=== PATIENT | female | born 1970 | race Caucasian/White ===

== ENCOUNTER → 2017-03-20 | Outpatient (CLI) | payer BC ==
--- NOTE | 2017-03-23 08:29 | Diagnostic Imaging Report ---
Bilateral screening mammogram. The current study was also evaluated with a Computer Aided Detection (CAD) system. INDICATION: Screening. No current complaints stated on the questionnaire. COMPARISON: 09/14/2015. FINDINGS: The breasts are composed of heterogeneously dense parenchyma which would decrease mammographic sensitivity. There are developing calcifications seen in the upper and lower aspects of the left breast and minimal calcification seen in the upper right breast laterally. IMPRESSION: Developing microcalcifications seen in the upper and lower aspects of the left breast and in the upper outer right breast. Compression magnification views evaluation and bilateral ultrasound is recommended for further assessment. ACR BI-RADS Category 0: Incomplete. (Needs additional imaging evaluation). Result letter will be mailed to the patient. Note: At least 10% of breast cancer is not imaged by mammography. Dictated by: Dictated on workstation # [id number]
== END ==
LOC: RAD 11:11
PROVIDERS: ATTEND Obstetrics & Gynecology
DX: Z12.31 Encounter for screening mammogram for malignant neoplasm of breast (principal)
CPT/HCPCS: 77067

== ENCOUNTER → 2017-04-12 | Outpatient (CLI) | payer BC ==
--- NOTE | 2017-04-12 14:16 | Diagnostic Imaging Report ---
EXAMINATION: Bilateral breast ultrasound. INDICATION: Bilateral breast calcifications seen on mammography. FINDINGS: The four-quadrants and retroareolar region of each breast were scanned with no underlying abnormality seen. IMPRESSION: Negative study. The calcifications remain indeterminate although the overall features are in favor of a benign etiology. A 6 month followup mammogram is recommended to reevaluate. ACR BI-RADS Category 3: Probably benign findings. Dictated by: Dictated on workstation # [id number]
--- NOTE | 2017-04-12 17:29 | Diagnostic Imaging Report ---
EXAMINATION: Bilateral diagnostic mammogram with tomography. The current study was also evaluated with a Computer Aided Detection (CAD) system. INDICATION: Bilateral breast calcifications. COMPARISON: 03/20/2017. FINDINGS: The breasts are composed of heterogeneously dense parenchyma which may decrease mammographic sensitivity. Bilateral calcifications were evaluated with magnification views. These demonstrate punctate and minimal heterogeneity with relatively dispersed loose clustering seen, particularly in the left breast. No associated mass is seen. IMPRESSION: The calcifications are relatively dispersed on the left side and have very minimal heterogeneity with no associated mass bilaterally. An ultrasound evaluation is pending. ACR BI-RADS Category 0: Incomplete. (Needs additional imaging evaluation). Result letter will be mailed to the patient. Note: At least 10% of breast cancer is not imaged by mammography. Dictated by: Dictated on workstation # [id number]
== END ==
LOC: RAD 12:38
PROVIDERS: ATTEND Obstetrics & Gynecology
DX: R92.8 Other abnormal and inconclusive findings on diagnostic imaging of breast (principal)
CPT/HCPCS: 77066

== ENCOUNTER → 2019-07-01 | Outpatient (CLI) | payer BC ==
--- NOTE | 2019-07-04 08:14 | Diagnostic Imaging Report ---
EXAMINATION: Bilateral screening mammogram with CAD. INDICATION: Routine screening. COMPARISON: Correlation is made with the prior mammograms from 03/20/2017 and 12/03/2015. TECHNIQUE: 2D and 3D bilateral screening mammography was performed with CAD. FINDINGS: Both breasts remain heterogeneously dense, limiting the sensitivity of mammography. Calcifications throughout the left breast appear to be stable. No new mass or malignant appearing microcalcifications are seen. The axillae are unremarkable. IMPRESSION: No mammographic features suspicious for malignancy are identified. ACR BI-RADS Category 2: Benign findings. Result letter will be mailed to the patient. Note: At least 10% of breast cancer is not imaged by mammography. Dictated by: Dictated on workstation # [id number]
== END ==
LOC: RAD 11:22
PROVIDERS: ATTEND Obstetrics & Gynecology
DX: Z12.31 Encounter for screening mammogram for malignant neoplasm of breast (principal)
CPT/HCPCS: 77067

== ENCOUNTER → 2019-11-11 | Outpatient (CLI) | payer BC | LOC: CARD 14:22 | PROVIDERS: ATTEND Internal Medicine | DX: I50.9 Heart failure, unspecified (principal); E03.9 Hypothyroidism, unspecified; R60.9 Edema, unspecified; R70.0 Elevated erythrocyte sedimentation rate | CPT/HCPCS: 36415; 83880; 85379; 93306 ==

== ENCOUNTER 2020-03-03 05:38 | Outpatient (RCR) | payer BC ==
[~2020-03-03] VITALS: Ht 182.9 cm; Wt 104.5 kg
[~2020-03-03 05:38] MED LIST: bcp PO
== END 2020-03-03 15:38 | disposition home or self-care (01) ==
LOC: PREOP 05:38
PROVIDERS: ATTEND Internal Medicine
DX: Z01.818 Encounter for other preprocedural examination (principal); Z11.59 Encounter for screening for other viral diseases
CPT/HCPCS: 87635

== ENCOUNTER 2020-03-06 08:03 | Day surgery (SDC) | payer BC ==
[2020-03-06] VITALS (12 sets, daily range): BP systolic 94–127; BP diastolic 53–94
[~2020-03-06] VITALS: Ht 182.9 cm; Wt 104.5 kg
--- NOTE | 2020-03-06 08:05 | Pre-Op Note & Conscious Sedat ---
Pre-Operative Progress Note H&P Reviewed The H&P was reviewed, patient examined and no changes noted. Date H&P Reviewed: Mar 06, 2020 Time H&P Reviewed: 08:05 Conscious Sedation Pre-Proced ASA Score 2 For ASA 3 and 4: Consider anesthesia and medical clearance. Also, for patients with a history of failed moderate sedation consider anesthesia. Airway Lungs Heart ASA score ASA 1: a normal healthy patient ASA 2: a patient with a mild systemic disease (mid diabetes, controlled hypertension, obesity ASA 3: a patient with a severe systemic disease that limits activity (angina, COPD, prior Myocardial infarction) ASA 4: a patient with an incapacitating disease that is a constant threat to life (CHF, renal failure) ASA 5: a moribund patient not expected to survive 24 hrs. (ruptured aneurysm) ASA 6: a declared brain- patient whose organs are being harvested. For emergent operations, add the letter E after the classification Mallampati Classification Grade 2 Sedation Plan Analgesia, Amnesia, Plan communicated to team members, Discussed options with patient/fam, Discussed risks with patient/fam The patient is an appropriate candidate to undergo the planned procedure, sedation, and anesthesia. The patient immediately re-assessed prior to indication. RAJI DAHL MD Mar 06, 2020 08:05
[2020-03-06] MEDS ORDERED: LACTATED RINGERS 1,000 ML IV STA (08:06)
[2020-03-06] MEDS ORDERED: LIDOCAINE JELLY 2% 6 ML SYRINGE MM PRN ×2 (08:15→12:15)
[2020-03-06] MEDS ORDERED: D5 LR IV SOLUTION 1,000 ML IV ONE ×2 (08:25→09:15)
[2020-03-06] MEDS ORDERED: LIDOCAINE JELLY 2% 6 ML SYRINGE ONE (08:53)
[2020-03-06] MEDS ORDERED: fentaNYL INJECTION 100 MCG/2 ML AMP ONE ×2 (08:54→09:01)
[2020-03-06] MEDS ORDERED: MIDAZOLAM 5 MG/5 ML (VERSED) VIAL ONE ×4 (08:54→09:30)
[2020-03-06] MEDS: MIDAZOLAM 5 MG/5 ML (VERSED) VIAL IV PRN ×7 (08:56→09:29)
--- NOTE | 2020-03-06 10:20 | NUR ---
PASSING FLATUS, DENIES COMPLAINTS, ALERT. STATES SHE IS READY FOR DISMISSAL.
[2020-03-06] MEDS ORDERED: fentaNYL INJECTION 100 MCG/2 ML AMP IVP ONE (12:15)
--- NOTE | 2020-03-06 15:54 | OPERATIVE REPORT ---
DATE OF SERVICE: COLONOSCOPY SUMMARY INDICATION FOR THE PROCEDURE: Screening. DESCRIPTION OF PROCEDURE: The patient was placed in the left lateral decubitus position. Prior to undergoing colonoscopy, digital rectal evaluation was performed. Anal sphincter tone was normal and the perianal reflexes intact. No abnormalities were noted on digital inspection of anal canal or destructive vault. The colonoscope was then inserted into the rectum and under direct visualization advanced to cecum. The cecum was identified by identification of ileocecal valve and cecal strap. Careful inspection was made as colonoscope withdrawn. Quality of prep was good. The patient tolerated the procedure well, although did require significantly more than average amount of medication, a total of 9 to 10 mg of Versed and 200 mg of fentanyl. There was no evidence for internal or external hemorrhoids. The rectum, sigmoid colon, descending colon, transverse colon, ascending colon and cecum were unremarkable. No evidence for diverticular disease or neoplasia was identified. No evidence for colonic dilatation was present. ASSESSMENT: Normal colonoscopy to the cecum. The patient does report issues with constipation. She did not have an IBS type response to colonic insufflation or manipulation. Suspect slow colonic transit. She has been doing better with fiber supplementation, discussed the importance of increased fluids as well as regular physical activity and the Duarte definition of constipation was discussed with the patient. On her current regimen, she is not having to strain. The patient was reassured. I thank you for the referral of this pleasant lady. Would consider repeat screening colonoscopy in 10 years as she is not aware of any family history for colon cancer. Job ID: [id number] DocumentID: [id number] Dictated Date: 03/06/2020 10:22:50 Shanker Out Date: 03/06/2020 15:54:11 Dictated By: RAJI DAHL MD [facility]
--- NOTE | 2020-03-20 10:25 | HISTORY AND PHYSICAL ---
DATE OF SERVICE: COLONOSCOPY HISTORY AND PHYSICAL HISTORY OF PRESENT ILLNESS: The patient is a 49-year-old white female referred by Dr. Hook for her first screening colonoscopy. She reports that she has had chronic problems with constipation or strained to pass hard stool every third or fourth day, does note some abdominal bloating prior to this. She will occasionally take Correctol, was on no other medication. She was concerned about discomfort for this reason due to colonoscopy. She is not aware of any family history for colon cancer, although her father at age of 71 secondary to pancreatic cancer. He did have a history of smoking. Remainder of family history, mother is alive and well at age of 87 with no health problems. She denies any problems with bright red blood per rectum, melena or change in weight. 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 PAST SURGICAL HISTORY: She has had distant past history of foot surgery and a 19 years ago. REVIEW OF SYSTEMS: CONSTITUTIONAL: She has had no night sweats, chills, fever or change in weight. GASTROINTESTINAL: As noted in the HPI. CARDIOVASCULAR: She had a workup for congestive heart failure that include an echocardiogram for shortness of breath 3 months ago. This resolved and her echo was unremarkable with an ejection fraction of 60 to 65% with no regional wall motion and no evidence for significant diastolic dysfunction. Pulmonary artery systolic pressure was normal, estimated at 15 to 20 mmHg. She has had no subsequent symptoms. She denies orthopnea, PND or pedal edema. PULMONARY: She denies any problems with cough or wheezing. PHYSICAL EXAMINATION: GENERAL: Reveals a pleasant white female. Weight 230 pounds. VITAL SIGNS: Blood pressure 122/62, heart rate 70 and regular. HEENT: Unremarkable. Sclerae nonicteric. Mallampati 2 oropharyngeal configuration. CHEST: Clear to auscultation. CARDIOVASCULAR: Revealed a regular rate and rhythm without murmur, S3 or S4. ABDOMEN: Soft, supple without mass or organomegaly. There is some mild left lower quadrant discomfort to palpation. No evidence for mass was noted. EXTREMITIES: Reveal no cyanosis, clubbing or edema. ASSESSMENT AND PLAN: The patient was set up for screening colonoscopy. Because of history compatible with IBS-C and likely increase sensitivity to air insufflation and colonic manipulation, we will consult anesthesiology for Diprivan administration. I thank you for the referral of this pleasant lady. Job ID: [id number] DocumentID: [id number] Dictated Date: 02/12/2020 18:27:44 Grip Date: 02/12/2020 19:07:29 Dictated By: RAJI DAHL MD <Dictated by RAJI DAHL MD> <Electronically signed by RAJI DAHL MD> 02/14/20 1210 MTDD
== END 2020-03-06 10:20 | disposition home or self-care (01) ==
LOC: ENDO 08:03
PROVIDERS: ATTEND Internal Medicine
DX: Z12.11 Encounter for screening for malignant neoplasm of colon (principal); K59.00 Constipation, unspecified; Z80.0 Family history of malignant neoplasm of digestive organs

== ENCOUNTER → 2021-11-23 | Outpatient (CLI) | payer BC, OTHER ==
--- NOTE | 2021-11-23 21:15 | Diagnostic Imaging Report ---
INDICATION: Routine screening. COMPARISON is made with prior mammograms from 07/01/2019 and 03/20/2017. 2-D and 3-D bilateral screening mammography was performed with CAD. Both breasts are heterogeneously dense, limiting the sensitivity of mammography. There are calcifications bilaterally which appear to be stable. No dominant mass is identified. Axillae are unremarkable. IMPRESSION: BI-RADS Category 2 No mammographic features suspicious for malignancy are identified. ACR BI-RADS Category 2: Benign findings. Result letter will be mailed to the patient. Note: At least 10% of breast cancer is not imaged by mammography. Dictated by: Dictated on workstation # [id number]
== END ==
LOC: RAD 12:45
PROVIDERS: ATTEND Obstetrics & Gynecology
DX: Z12.31 Encounter for screening mammogram for malignant neoplasm of breast (principal)
CPT/HCPCS: 77063; 77067

== ENCOUNTER → 2023-04-07 | Outpatient (CLI) | payer OTHER ==
--- NOTE | 2023-04-07 14:28 | Diagnostic Imaging Report ---
INDICATION: Bilateral digital 2-D and 3-D screening with CAD COMPARED: 11/2021, 06/2019. FINDINGS: Density 2 No breast mass, spiculated lesion, architectural distortion, suspicious calcifications or changes felt suggestive of developing malignancy. IMPRESSION: BI-RADS Category 1 ACR BI-RADS Category 1: Negative. Result letter will be mailed to the patient. Note: At least 10% of breast cancer is not imaged by mammography. Dictated by: Dictated on workstation # [id number]
== END ==
LOC: RAD 13:17
PROVIDERS: ATTEND Obstetrics & Gynecology
DX: Z12.31 Encounter for screening mammogram for malignant neoplasm of breast (principal)
CPT/HCPCS: 77063; 77067